=== PATIENT | female | born 1995 | race Caucasian/White ===

== ENCOUNTER 2020-05-20 21:46 | Emergency (ER) | payer BC, MEDICAID ==
[~2020-05-20] VITALS: Ht 160 cm; Wt 89.3 kg
--- NOTE | 2020-05-20 21:57 | NUR ---
PT REPORTS LOW ABD CRAMPING X1 WEEK, STARTED VAGINAL SPOTTING TODAY, REPORTS + .
[2020-05-20 22:21] LABS: BASOPHILS # (AUTO) 0.07 x10^3/uL (0-0.1); BASOPHILS % (AUTO) 1 % (0-1); EOSINOPHILS # (AUTO) 0.14 x10^3/uL (0-0.4); EOSINOPHILS % (AUTO) 1 % (1-7); LYMPHOCYTES # (AUTO) 3.37 x10^3/uL (1-3.4); LYMPHOCYTES % (AUTO) 29 % (22-44); MD NO; MEAN CORPUSCULAR HEMOGLOBIN 29.6 pg (27.0-34.8); MEAN CORPUSCULAR HGB CONC 33.4 g/dL (32.4-35.8); MEAN CORPUSCULAR VOLUME 88.8 fL (80-100); MEAN PLATELET VOLUME 7.4 fL (7.4-10.4); MONOCYTES % (AUTO) 6 % (2-9); NEUTROPHILS # (AUTO) 7.53 x10^3/uL (1.8-6.8); NEUTROPHILS % (AUTO) 64 % (42-75); PLATELET COUNT 333 x10^3/uL (130-400); RED CELL DISTRIBUTION WIDTH 12.1 % (9.6-15.2)
[2020-05-20 22:24] LABS: MICROSCOPIC AUTO
[2020-05-20 22:32] LABS: ALANINE AMINOTRANSFERASE 23 U/L (12-78); ALBUMIN 3.5 g/dL (3.4-5.0); ANION GAP 5 mmol/L (5-15); CALCIUM 8.3 mg/dL (8.5-10.1); CHLORIDE 107 mmol/L (98-107); CREATININE 0.86 mg/dL (0.55-1.02)
[2020-05-20 22:37] LABS: ALKALINE PHOSPHATASE 124 U/L (45-117); BILIRUBIN,TOTAL 0.4 mg/dL (0.2-1.0); TOTAL PROTEIN 8.1 g/dL (6.4-8.2)
--- NOTE | 2020-05-20 23:09 | NUR ---
PT IN ULTRASOUND.
[2020-05-20 23:43] VITALS: BP 115/71
--- NOTE | 2020-05-20 23:45 | NUR ---
PT RESTING ON GURNEY, DENIES PAIN AT THIS TIME. VSS.
== END 2020-05-21 00:40 | disposition home or self-care (01) ==
LOC: ED 23:59
DX: O03.9 Complete or unspecified spontaneous abortion without complication (principal); R10.9 Unspecified abdominal pain
CPT/HCPCS: 36415; 76801; 80053; 81001; 84702; 85025; 86901; 99284